=== PATIENT | female | born 2005 | race Caucasian/White ===

== ENCOUNTER 2023-03-19 05:14 | Outpatient (CLI) | payer MEDICAID, OTHER | END 2023-03-19 05:15 | disposition EMS.NT | LOC: EMS 05:14 | DX: S51.812A Laceration without foreign body of left forearm, initial encounter (principal); X78.1XXA Intentional self-harm by knife, initial encounter; Y92.009 Unspecified place in unspecified non-institutional (private) residence as the place of occurrence of the external cause; R45.89 Other symptoms and signs involving emotional state ==

== ENCOUNTER 2023-06-03 14:49 | Outpatient (CLI) | payer MEDICAID ==
[2023-06-03 15:06] LABS: BASOPHILS % (AUTO) 0.2 %; EOSINOPHILS # (AUTO) 0.1 10^3/uL (0.0-0.7); EOSINOPHILS % (AUTO) 1.1 %; HCT - HEMATOCRIT 30.9 % (37.0-47.0); HGB - HEMOGLOBIN 10.5 g/dL (12.0-16.0); LYMPHOCYTES # (AUTO) 1.1 10^3/uL (1.5-3.5); LYMPHOCYTES % (AUTO) 23.3 %; MEAN CORPUSCULAR HEMOGLOBIN 32.3 pg (27.0-31.0); MEAN CORPUSCULAR VOLUME 95.1 fL (81.0-99.0); MEAN PLATELET VOLUME 9.3 fL (7.9-10.8); MONOCYTES # (AUTO) 0.3 10^3/uL (0.0-1.0); MONOCYTES % (AUTO) 5.7 %; NEUTROPHILS # (AUTO) 3.3 10^3/uL (1.5-6.6); NEUTROPHILS % (AUTO) 69.5 %; PLT - PLATELET COUNT 193 10^3/uL (130-450); RED BLOOD COUNT 3.25 10^6/uL (4.20-5.40); RED CELL DISTRIBUTION WIDTH 13.5 % (12.0-15.0); WHITE BLOOD COUNT 4.7 x10^3/uL (4.8-10.8)
[2023-06-03 15:24] LABS: BILIRUBIN,URINE NEGATIVE (NEGATIVE); GLUCOSE, URINE (UA) NEGATIVE (NEGATIVE); KETONES,URINE (UA) NEGATIVE (NEGATIVE); LEUKOCYTE ESTERASE, URINE NEGATIVE (NEGATIVE); NITRITE,URINE NEGATIVE (NEGATIVE); OCCULT BLOOD,URINE NEGATIVE (NEGATIVE); PROTEIN,URINE NEGATIVE (NEGATIVE); UROBILINOGEN,URINE 0.2 (NORMAL) E.U./dL (NORMAL)
[2023-06-03 15:27] LABS: CLARITY,URINE CLEAR (CLEAR)
[2023-06-03 15:42] LABS: BACTERIA,URINE Moderate /HPF (None Seen); RBC,URINE None Seen /HPF (0-5); SQUAMOUS EPITHELIAL CELL,UR RARE Squamous (<= Few); WBC,URINE 0-3 /HPF (0-5)
[2023-06-03 20:47] LABS: BACTERIAL VAGINOSIS DNA NEGATIVE (NEGATIVE); CANDIDA GLABRATA DNA NEGATIVE (NEGATIVE); CANDIDA GROUP DNA POSITIVE (NEGATIVE); CANDIDA KRUSEI DNA NEGATIVE (NEGATIVE); TRICHOMONAS VAGINALIS DNA NEGATIVE (NEGATIVE)
[2023-06-03 23:24] LABS: CHLAMYDIA TRACHOMATIS DNA NEGATIVE (NEGATIVE); NEISSERIA GONORRHOEAE DNA NEGATIVE (NEGATIVE); TRICHOMONAS VAGINALIS DNA NEGATIVE (NEGATIVE)
[2023-06-04 05:11] LABS: HBsAG SCREEN Negative (Negative)
[2023-06-04 07:09] LABS: HIV SCREEN 4TH GENERATION Non Reactive (Non Reactive); RPR Non Reactive (Non Reactive)
[2023-06-04 08:10] LABS: VARICELLA-ZOSTER AB IGG 485 index (Immune >165)
[2023-06-05 09:08] LABS: HCV AB Non Reactive (Non Reactive)
== END 2023-06-03 14:50 | disposition home or self-care (01) ==
LOC: LAB 14:49
PROVIDERS: ATTEND Obstetrics & Gynecology
DX: O99.891 Other specified diseases and conditions complicating pregnancy (principal); N89.8 Other specified noninflammatory disorders of vagina; Z36.89 Encounter for other specified antenatal screening
CPT/HCPCS: 36415; 81001; 81514; 85025; 86592; 86762; 86787; 86803; 86850; 86900; 86901; 87077; 87086; 87181; 87340; 87389; 87491; 87591; 87661

== ENCOUNTER 2023-06-11 08:00 | Outpatient (CLI) | payer MEDICAID | END 2023-06-11 23:59 | disposition home or self-care (01) | LOC: LAB.N 08:00 | PROVIDERS: ATTEND Physician Assistant Medical | DX: N39.0 Urinary tract infection, site not specified (principal) | CPT/HCPCS: 87077; 87086; 87181 ==

== ENCOUNTER 2023-07-23 | Outpatient (CLI) | payer MEDICAID | END 2023-07-23 23:59 | disposition EMS.NT | LOC: EMS | DX: S51.812A Laceration without foreign body of left forearm, initial encounter (principal); S51.811A Laceration without foreign body of right forearm, initial encounter; X78.9XXA Intentional self-harm by unspecified sharp object, initial encounter ==

== ENCOUNTER 2023-07-25 07:50 | Outpatient (CLI) | payer MEDICAID ==
--- NOTE | 2023-07-26 00:12 | Ultrasound Report ---
PROCEDURE: OB 14+ Weeks INDICATIONS: SUPERVISION OF OUTSIDE/PRIOR DATING DATA: Last menstrual period (LMP): Unknown. LMP-based estimated date of delivery (TAMIKA): 03/12/2023. First dating scan (date and location): 07/25/2023. Estimated date of delivery (TAMIKA) from first dating scan: 12/24/2023. The below data below was generated using the working TAMIKA of communicated to 24 TECHNIQUE: Ultrasound of the gravid uterus was performed and recorded. COMPARISON: None. FINDINGS: General: A single live intrauterine gestation is present. Presentation: Vertex Placenta: Placental position is posterior without previa. Amniotic fluid index: 13.2 cm, normal for gestational age. heart rate: 147 beats per minute. Maternal cervical canal: 3.8 cm long; normal length is 2.5 cm or more. biometrics: Biparietal diameter: 4.2 cm, 18 week 5 day, 24 percentile Head circumference: 14.9 cm, 18 week 0 day, 3 percentile Abdominal circumference: 12.8 cm, 18 week 2 day, 17 percentile Femur length: 2.7 cm, 18 week 2 day, 11 percentile Estimated gestational age by working dates: not applicable. Composite gestational age by current ultrasound: 18 week 2 day Estimated weight and percentile: 232 g, 6.3 percentile Measurement variability in biometric dating: +/- 10 days from 12-20 weeks gestation, +/- 2 weeks from 20-30 weeks gestation, +/- 3 weeks at 30 weeks gestation or more. Anatomic survey: Neuro: Ventricles are non-dilated at less than 10 mm. Cisterna magna is normal at 3-11 mm. Cerebel lum is normal in size and morphology. Nuchal skin fold: Normal at less than 6 mm between 14-20 weeks gestational age. Face: Not evaluated Spine: No evidence for spina bifida. Heart: Outflow tracts not evaluated. Chamber view within normal limits Diaphragm: Diaphragm is intact. Stomach: Left-sided stomach is present. Kidneys: No hydronephrosis. Normal is less than 5 mm in 2nd trimester, less than 7 mm in 3rd trimester. Cord: 3-vessel cord has orthotopic insertion. Bladder: Normal in size. Extremities: Not evaluated Other: Not applicable. IMPRESSION: Single live intrauterine consistent with 18 week 2 day gestation by current ultrasound Cardiac outflow tracts, nose/lips, extremities not evaluated. Attention on follow-up Reviewed by: Roverto Hatch MD on 07/25/2023 11:11 PM AKDT Approved by: Roverto Hatch MD on 07/25/2023 11:11 PM AKTARAN Station ID: [id number]
== END 2023-07-25 07:51 | disposition home or self-care (01) ==
LOC: DI 07:50
PROVIDERS: ATTEND Nurse Practitioner
DX: Z34.02 Encounter for supervision of normal first pregnancy, second trimester (principal)

== ENCOUNTER 2023-08-15 08:00 | Outpatient (CLI) | payer MEDICAID ==
[2023-08-15 17:39] LABS: BILIRUBIN,URINE NEGATIVE (NEGATIVE); GLUCOSE, URINE (UA) 100 mg/dL (NEGATIVE); KETONES,URINE (UA) NEGATIVE (NEGATIVE); LEUKOCYTE ESTERASE, URINE NEGATIVE (NEGATIVE); NITRITE,URINE NEGATIVE (NEGATIVE); OCCULT BLOOD,URINE NEGATIVE (NEGATIVE); PROTEIN,URINE NEGATIVE (NEGATIVE); UROBILINOGEN,URINE 0.2 (NORMAL) E.U./dL (NORMAL)
[2023-08-15 17:42] LABS: CLARITY,URINE CLEAR (CLEAR)
[2023-08-15 17:46] LABS: SQUAMOUS EPITHELIAL CELL,UR MOD Squamous (<= Few)
[2023-08-15 17:47] LABS: AMORPHOUS SEDIMENT,UR Moderate /LPF; BACTERIA,URINE Moderate /HPF (None Seen)
== END 2023-08-15 23:59 | disposition home or self-care (01) ==
LOC: LAB.WC 08:00
PROVIDERS: ATTEND Nurse Practitioner
DX: R30.0 Dysuria (principal)
CPT/HCPCS: 81001; 87086

== ENCOUNTER 2023-08-27 08:00 | Outpatient (CLI) | payer MEDICAID ==
[2023-08-27 22:01] LABS: CHLAMYDIA TRACHOMATIS DNA NEGATIVE (NEGATIVE); NEISSERIA GONORRHOEAE DNA NEGATIVE (NEGATIVE)
[2023-08-27 23:04] LABS: BACTERIAL VAGINOSIS DNA NEGATIVE (NEGATIVE); CANDIDA GLABRATA DNA NEGATIVE (NEGATIVE); CANDIDA GROUP DNA NEGATIVE (NEGATIVE); CANDIDA KRUSEI DNA NEGATIVE (NEGATIVE); TRICHOMONAS VAGINALIS DNA NEGATIVE (NEGATIVE)
== END 2023-08-27 23:59 | disposition home or self-care (01) ==
LOC: LAB.N 08:00
PROVIDERS: ATTEND Physician Assistant Medical
DX: N39.0 Urinary tract infection, site not specified (principal); N89.8 Other specified noninflammatory disorders of vagina
CPT/HCPCS: 81514; 87086; 87491; 87591; 87661

== ENCOUNTER 2023-08-31 16:07 | Outpatient (CLI) | payer MEDICAID ==
--- NOTE | 2023-09-01 09:30 | Ultrasound Report ---
PROCEDURE: OB Follow up INDICATIONS: SUPERVISION OF OUTSIDE/PRIOR DATING DATA: Last menstrual period (LMP): 03/12/2023. LMP-based estimated date of delivery (TAMIKA): 12/17/2023. First dating scan (date and location): 07/25/2023. Estimated date of delivery (TAMIKA) from first dating scan: 12/24/2023. The below data below was generated using the ultrasound TAMIKA of 12/24/2023 TECHNIQUE: Real-time scanning was performed of the fetus, with image documentation and biometric measurements. Endovaginal scanning: Not performed. COMPARISON: 07/25/2023 FINDINGS: General: A single living intrauterine gestation is present. Presentation: Vertex Placenta: Placental position is posterior, without previa. Amniotic fluid index: 12.5 cm, within normal limits for gestational age. heart rate: 152 beats per minute. Maternal cervical canal: 3.7 cm long; normal length is 2.5 cm or more. biometrics: Biparietal diameter: 5.8 cm, 23 weeks 4 days, 47% Head circumference: 21.8 cm, 23 weeks 6 days, 42% Abdominal circumference: 18.3 cm, 23 weeks 1 day, 27% Femur length: 4.3 cm, 24 weeks 1 day, 56% Estimated gestational age from initial scan: 23 weeks 4 days Composite gestational age from present scan: 23 weeks 5 days Estimated weight and percentile: 608 g, 42% Measurement variability in biometric dating: +/- 10 days from 12-20 weeks gestation, +/- 2 weeks from 20-30 weeks gestation, +/- 3 weeks at 30 weeks gestation or more. Other: Nose, lips and facial profile are within normal limits. Cardiac outflow tracts are within norm al limits. Upper lower extremities are within normal limits.. IMPRESSION: 1.Single live intrauterine consistent with 23 weeks and 5 days. 2.Facial profile, nose, lips, cardiac outflow tracts and upper and lower extremities are within anna l limits. Reviewed by: Florentino Poole MD on 09/01/2023 9:29 AM PDT Approved by: Florentino Poole MD on 09/01/2023 9:29 AM PDT Station ID: [id number]
== END 2023-08-31 16:08 | disposition home or self-care (01) ==
LOC: DI 16:07
PROVIDERS: ATTEND Nurse Practitioner
DX: Z34.02 Encounter for supervision of normal first pregnancy, second trimester (principal)

== ENCOUNTER 2023-11-09 10:26 | Outpatient (CLI) | payer MEDICAID ==
[2023-11-09 10:42] LABS: HCT - HEMATOCRIT 30.5 % (37.0-47.0); HGB - HEMOGLOBIN 10.2 g/dL (12.0-16.0); MEAN CORPUSCULAR HEMOGLOBIN 32.3 pg (27.0-31.0); MEAN CORPUSCULAR HGB CONC 33.4 g/dL (32.0-36.0); MEAN CORPUSCULAR VOLUME 96.5 fL (81.0-99.0); MEAN PLATELET VOLUME 9.2 fL (7.9-10.8); RED BLOOD COUNT 3.16 10^6/uL (4.20-5.40); RED CELL DISTRIBUTION WIDTH 12.6 % (12.0-15.0); WHITE BLOOD COUNT 7.6 x10^3/uL (4.8-10.8)
[2023-11-09 11:00] LABS: CALCIUM 8.6 mg/dL (8.5-10.3); CREATININE 0.6 mg/dL (0.6-1.3); POTASSIUM 3.7 mmol/L (3.5-4.5)
[2023-11-09 12:11] LABS: ESTIMATED AVERAGE GLUCOSE 85 mg/dL (70-100); HEMOGLOBIN A1c% 4.6 % (4.27-6.07)
[2023-11-10 07:10] LABS: RPR Non Reactive (Non Reactive)
== END 2023-11-09 10:27 | disposition home or self-care (01) ==
LOC: LAB 10:26
PROVIDERS: ATTEND Obstetrics & Gynecology
DX: O09.893 Supervision of other high risk pregnancies, third trimester (principal)
CPT/HCPCS: 36415; 80048; 83036; 85027; 86592

== ENCOUNTER 2023-11-16 14:57 | Outpatient (CLI) | payer MEDICAID ==
--- NOTE | 2023-11-16 16:53 | Ultrasound Report ---
PROCEDURE: OB Follow up INDICATIONS: UTERINE SIZE-DATE DISCREPANCY, THIRD TRIMESTER OUTSIDE/PRIOR DATING DATA: Last menstrual period (LMP): 03/12/2023. LMP-based estimated date of delivery (TAMIKA): 12/17/2023. First dating scan (date and location): 07/25/2023. Estimated date of delivery (TAMIKA) from first dating scan: 12/24/2023. The below data below was generated using the working TAMIKA of 12/17/2023 TECHNIQUE: Real-time scanning was performed of the fetus, with image documentation and biometric measurements. Endovaginal scanning: Not performed. COMPARISON: 08/31/2023. FINDINGS: General: A single living intrauterine gestation is present. Presentation: Vertex Placenta: Placental position is posterior, without previa. Amniotic fluid index: 13.2 cm, within normal limits for gestational age. heart rate: 133 beats per minute. Maternal cervical canal: 4.6 cm long; normal length is 2.5 cm or more. biometrics: Biparietal diameter: 8.66 cm, 35 weeks 0 days, 37.0% Head circumference: 31.06 cm, 34 weeks 5 days, 6.9 percentile Abdominal circumference: 29.77 cm, 33 weeks 5 days, 12.0% Femur length: 6.44 cm, 33 weeks 2 days, 3.6 percentile Estimated working gestational age: 35 weeks 4 days Composite gestational age from present scan: 34 weeks 1 day Estimated weight and percentile: 2282.6 g, 10.3% Measurement variability in biometric dating: +/- 10 days from 12-20 weeks gestation, +/- 2 weeks from 20-30 weeks gestation, +/- 3 weeks at 30 weeks gestation or more. Other: Not applicable. IMPRESSION: 1. Living third trimester intrauterine with no sonographic evidence of complications. 2. Using the working TAMIKA of 12/17/2023, estimated weight is 10.3 percentile Reviewed by: Oli Reyes MD on 11/16/2023 4:52 PM PDT Approved by: Oli Reyes MD on 11/16/2023 4:52 PM PDT Station ID: [id number]
== END 2023-11-16 14:58 | disposition home or self-care (01) ==
LOC: DI 14:57
PROVIDERS: ATTEND Obstetrics & Gynecology
DX: O26.843 Uterine size-date discrepancy, third trimester (principal)

== ENCOUNTER 2023-12-23 07:59 | Inpatient (IN) ==
[2023-12-23] MEDS ORDERED: OXYTOCIN 10 UNIT/ML VIAL IM PRN (09:12)
[2023-12-23] MEDS ORDERED: SODIUM CHLORIDE FLUSH 0.9% 10 ML SYRINGE IVP PRN (09:12)
[2023-12-23] MEDS ORDERED: hydrALAZINE INJ 20 MG/ML VIAL IVP PRN (09:12)
[2023-12-23] MEDS ORDERED: miSOPROStoL 200 MCG TABLET BC PRN (09:12)
[2023-12-23] MEDS ORDERED: METHYLERGONOVINE 0.2 MG/ML VIAL IM PRN (09:12)
[2023-12-23] MEDS ORDERED: miSOPROStoL 200 MCG TABLET PR PRN (09:12)
[2023-12-23] MEDS ORDERED: lidocaine 1% 20 ML MDV ID PRN (09:12)
[2023-12-23] MEDS ORDERED: TRANEXAMIC ACID IN NACL 1,000 MG/100 ML BAG IV PRN (09:12)
[2023-12-23] MEDS ORDERED: TERBUTALINE 1 MG/ML VIAL SUBQ PRN (09:12)
[2023-12-23] MEDS ORDERED: fentaNYL 100 MCG/2 ML VIAL IVP PRN (09:12)
[2023-12-23] MEDS ORDERED: NIFEdipine 10 MG CAPSULE PO PRN (09:12)
[2023-12-23] MEDS ORDERED: CARBOPROST TROMETHAMINE 250 MCG/ML VIAL IM PRN (09:12)
[2023-12-23] MEDS ORDERED: LABETALOL 20 MG/4 ML SYRINGE IVP PRN ×3 (09:12)
[2023-12-23 09:23] LABS: BASOPHILS % (AUTO) 0.1 %; EOSINOPHILS # (AUTO) 0.2 10^3/uL (0.0-0.7); EOSINOPHILS % (AUTO) 1.7 %; HCT - HEMATOCRIT 31.5 % (37.0-47.0); HGB - HEMOGLOBIN 10.4 g/dL (12.0-16.0); LYMPHOCYTES % (AUTO) 9.9 %; MEAN CORPUSCULAR HEMOGLOBIN 30.8 pg (27.0-31.0); MEAN CORPUSCULAR VOLUME 93.2 fL (81.0-99.0); MEAN PLATELET VOLUME 10.5 fL (7.9-10.8); MONOCYTES # (AUTO) 0.3 10^3/uL (0.0-1.0); MONOCYTES % (AUTO) 3.1 %; NEUTROPHILS # (AUTO) 8.6 10^3/uL (1.5-6.6); PLT - PLATELET COUNT 246 10^3/uL (130-450); RED BLOOD COUNT 3.38 10^6/uL (4.20-5.40); RED CELL DISTRIBUTION WIDTH 13.3 % (12.0-15.0); WHITE BLOOD COUNT 10.1 x10^3/uL (4.8-10.8)
[2023-12-23 09:33] LABS: ALBUMIN 3.9 g/dL (3.2-5.5); ALBUMIN/GLOBULIN RATIO 1.1 (1.0-2.2); BILIRUBIN,TOTAL 0.4 mg/dL (0.2-1.0); CALCIUM 9.4 mg/dL (8.5-10.3); CREATININE 0.5 mg/dL (0.6-1.3); POTASSIUM 3.9 mmol/L (3.5-4.5); TOTAL PROTEIN 7.6 g/dL (6.4-8.9)
[2023-12-23] MEDS ORDERED: SODIUM CHLORIDE FLUSH 0.9% 10 ML SYRINGE IVP SCH (10:00)
[2023-12-23] MEDS: PROMETHAZINE 25 MG/1 ML VIAL IM ONE (10:36)
[2023-12-23] MEDS: MORPHINE 10 MG/ML VIAL IM ONE (10:37)
[2023-12-23] MEDS ORDERED: ROPIVACAINE 0.2% 200 MG/100 ML BAG EP ONE (12:16)
[2023-12-23] MEDS ORDERED: LIDOCAINE 2%-EPI 1:100000 20 ML MDV ONE (12:16)
[2023-12-23] MEDS: LACTATED RINGERS 1,000 ML IV PRN (12:17)
[2023-12-23] MEDS ORDERED: ePHEDrine 50 MG/ML VIAL IVP PRN (13:37)
[2023-12-23] MEDS ORDERED: METOCLOPRAMIDE 10 MG/2 ML VIAL IVP PRN (13:37)
[2023-12-23] MEDS ORDERED: LACTATED RINGERS 500 ML IV ONE (13:37)
[2023-12-23] MEDS ORDERED: NALBUPHINE 10 MG/ML AMP IVP PRN (13:37)
[2023-12-23] MEDS ORDERED: NALOXONE 0.4 MG/ML VIAL IVP PRN (13:37)
[2023-12-23] MEDS ORDERED: diphenhydrAMINE INJ 50 MG/ML VIAL IVP PRN (13:37)
--- NOTE | 2023-12-23 13:39 | ANESTHESIA PROCEDURE NOTE ---
Pre-Anesthesia VS, & Labs Diagnosis Surgical Diagnosis:: labor Procedure Procedure: epidural Vitals Vital Signs: Temp Pulse Resp BP 36.8 C 92 H 18 127/71 12/23/23 08:17 12/23/23 08:17 12/23/23 08:17 12/23/23 08:17 NPO NPO: Other Is Patient ?: Yes Lab Results Current Lab Results: Laboratory Tests 12/23/23 10:15: Blood Type B POSITIVE, Antibody Screen NEGATIVE 12/23/23 08:55: WBC 10.1, RBC 3.38 L, Hgb 10.4 L, Hct 31.5 L, MCV 93.2, MCH 30.8, MCHC 33.0, RDW 13.3, Plt Count 246, MPV 10.5, Neut # (Auto) 8.6 H, Lymph # (Auto) 1.0 L, Yancey # (Auto) 0.3, Eos # (Auto) 0.2, Baso # (Auto) 0.0, Absolute Nucleated RBC 0.00, Nucleated RBC % 0.0, Sodium 135, Potassium 3.9, Chloride 104, Carbon Dioxide 21, Anion Gap 10.0, BUN 7, Creatinine 0.5 L, Estimated GFR (MDRD) 157, Glucose 81, Calcium 9.4, Total Bilirubin 0.4, AST 18, ALT 7 L, A lkaline Phosphatase 282 H, Total Protein 7.6, Albumin 3.9, Globulin 3.7, Albumin/Globulin Ratio 1.1 12/23/23 08:55 12/23/23 08:55 Meds/Allgy Home Medications Ambulatory Orders Medication Instructions Recorded Confirmed biotin 1 mg capsule 1 mg PO QDAY 12/19/23 12/19/23 ferrous sulfate 325 mg (65 mg 325 mg PO QDAY 12/19/23 12/19/23 iron) tablet magnesium 200 mg tablet 200 mg PO QDAY 12/19/23 12/19/23 vits no.126-ferrous fum tab PO 12/19/23 12/19/23 28 mg iron-folic acid 800 mcg tablet (Classic ) Allergies Allergies Allergy/AdvReac Type Severity Reaction Status Date / Time No Known Drug Allergies Allergy Verified 09/22/22 06:54 [facility] Social History Social History (Updated 12/19/23 @ 12:23 by Farzana Peralta MA) Smoking Status: Former smoker Second hand tobacco smoke exposure: No Do you dip or chew tobacco?: No Do you vape?: Yes ETOH Use: None Substance Use: denies use Anesthesia Exam (Expanded) Exam General: Alert, Oriented x3 and Moderate distress Dental: WNL Mouth Opening: Greater than 4 Fingerbreadths Neck Mobility: Normal Mallampati classification: I Thyromental Distance: greater than 6 cm Respiratory: Lungs clear Cardiovascular: Regular rate Exam Exam Vital Signs Temperature 36.8 C 12/23/23 08:17 Pulse Rate 92 H 12/23/23 08:17 Respiratory Rate 18 12/23/23 08:17 Blood Pressure 127/71 12/23/23 08:17 Plan Plan Anesthesia Type: Epidural Consent for Procedure(s) Verified and Reviewed: Yes Code Status: Attempt Resuscitation ASA Classification ASA classification: 2-Mild systemic disease Is this case an emergency?: No
[2023-12-23] MEDS: ONDANSETRON 4 MG/2 ML VIAL IVP PRN (13:46)
[2023-12-23] MEDS: ROPIVACAINE 0.2% 200 MG/100 ML BAG EP PRN (16:43)
--- NOTE | 2023-12-23 17:00 | PHARMACY PROGRESS NOTE ---
Best Possible Medication History Admit Date and Time: 12/23/23 [id number] [facility] Statement: As the person ultimately responsible for medication therapy, providers are able to order a medication from an existing home medication list in [facility] via the "Reconcile Routine" prior to Confirmation of that medication by manager decision support. Such practice is discouraged except when the physician, in their clinical judgment, deems that a medical need exists for a medication without regard to previous use.
[2023-12-23] MEDS: OXYTOCIN/SODIUM CHLORIDE 500 ML IV PRN (17:57)
[2023-12-23] MEDS ORDERED: OXYTOCIN/SODIUM CHLORIDE 500 ML IV PRN (18:32)
[2023-12-23] MEDS ORDERED: IRON DEXTRAN 1,000 MG in SODIUM CHLORIDE 0.9% 250 ML IV ONE (18:37)
--- NOTE | 2023-12-23 18:53 | HISTORY & PHYSICAL EXAMINATION ---
Admit History Visit Reason Visit Reason: Contractions : 2 : 1 Care: positive [facility] Complications This : positive Other (came to visits but never did dating ultrasound or sugar test.) Smoking Status: Former smoker Mother's Labs Mother's Blood Type: positive B Mother's RH: positive Positive GBS: positive Group B Step Negative Rubella Status: positive Non-immune and Immune HPI Diagnosis/Indication for NST: Post-dates gestation Current : Vital Signs Temperature 36.8 C 12/23/23 08:17 Pulse Rate 92 H 12/23/23 08:17 Respiratory Rate 18 12/23/23 08:17 Blood Pressure 127/71 12/23/23 08:17 Temperature 36.8 C 12/23/23 08:17 Pulse Rate 92 H 12/23/23 08:17 Respiratory Rate 18 12/23/23 08:17 Blood Pressure 127/71 12/23/23 08:17 NST Procedure NST Procedure: baby looks great. Acels and no decels. moderate variability Results and Plan Findings/Impression: reactive NST Plan: admit for labor. Meds/Allgy Home Medications Ambulatory Orders Medication Instructions Recorded Confirmed biotin 1 mg capsule 1 mg PO QDAY 12/19/23 12/23/23 ferrous sulfate 325 mg (65 mg 325 mg PO QDAY 12/19/23 12/23/23 iron) tablet magnesium 200 mg tablet 200 mg PO QDAY 12/19/23 12/23/23 vits no.126-ferrous fum 1 tab PO DAILY 12/19/23 12/23/23 28 mg iron-folic acid 800 mcg tablet (Classic ) Allergies Allergies Allergy/AdvReac Type Severity Reaction Status Date / Time No Known Drug Allergies Allergy Verified 09/22/22 06:54 [facility] Medical History Medical History (Updated 12/23/23 @ 18:51 by Rosanne Chong MD) Anxiety Family History Family History (Updated 12/23/23 @ 18:47 by Rosanne Chong MD) Mother Mental disorder CAD (coronary artery disease) Father Hepatitis C virus Diabetes Social History Social History (Updated 12/19/23 @ 12:23 by Farzana Peralta MA) Smoking Status: Former smoker Second hand tobacco smoke exposure: No Do you dip or chew tobacco?: No Do you vape?: Yes ETOH Use: None Substance Use: denies use POLST Patient has POLST: No Review of Systems no headache, n/v. painful contractions from 4 am. did not sleep last night. no leaking of fluid on admit. good movement. Physical Abdominal Exam Vital Signs: Temp Pulse Resp BP 36.8 C 92 H 18 127/71 12/23/23 08:17 12/23/23 08:17 12/23/23 08:17 12/23/23 08:17 Contraction Frequency (min/apart): every 2-3 min Contraction Intensity: positive Mild to moderate Uterine Resting Tone: positive Soft Monitoring Strip Review: positive Category I Presentation Presentation: positive Vertex (confrimed by ultrasound. ) Vaginal Exam Membranes: positive Membranes intact Dilation (in cm): unable to reach cervix, too far behind baby's head Station: positive 1 Cervical Position: positive Posterior Speculum Exam Speculum Exam Performed: positive No Plan for Labor Plan For Labor I expect patient to be DC'd or transferred within 96 hours.: Yes Conclusion/Plan Problem List (1) Anemia affecting : Plan: check ferritin. maybe post iron (2) 40 weeks gestation of : Plan: was coming in today for induction but is in early labor. ally too much for miso and I can not reach cervix to put in a balloon. will give her morphine and phenergan so she can get some sleep. She agrees to this plan. is very painful and very tired. Lab Results Lab results reviewed: Yes 12/23/23 08:55 12/23/23 08:55
--- NOTE | 2023-12-23 18:55 | PROVIDER PROGRESS NOTE ---
Labor Progress Note Uterine Monitoring Uterine Monitoring Mode: positive External toco Contraction Frequency (min/apart): 2-3 Contraction Intensity: positive Moderate Monitoring Monitor Mode: positive External ultrasound Accelerations: positive Present, 15x15 Decelerations: positive None Labor Progress Note Labor Progress Note/Additional Text: SROM per RN about 11:45. 2 rn check and thought she was 8. patient is getting epidural. later found to be only 3. then I came in to see her with some variables and she was complete and plus 3.
--- NOTE | 2023-12-23 19:10 | DELIVERY NOTE ---
Delivery Note Labor Labor: positive Spontaneous (presented for induction but was in early labor. SROM. Got her epidural around noon. At 5 pm was complete and + 3. ) Delivery Method Delivery Method: positive Spontaneous vaginal delivery Presentation Presentation: positive Vertex and OA - occiput anterior Nuchal Cord Nuchal Cord: positive None Amniotic Fluid Description Amniotic Fluid Description: positive Clear Episiotomy Type Episiotomy Type: positive None Laceration Laceration: positive Labial (bilateral labial tears. right in to top of labia minora. left barely torn. left repaired with one mattress stitch. right deep, repaired in 2 layers. ) Suture Suture Type: positive Vicryl Suture Size: positive 4-0 Delivery Outcome Delivery Outcome: positive Livebirth Madison Madison: positive Placed in direct skin contact with mother and Lincoln used Madison sex: positive Female Cord Cord: positive 3 vessels Placenta Placenta: positive Intact and Spontaneous Estimated Blood Loss Estimated Blood Loss (in cc): 300 Post Delivery Events Post Delivery Events: positive No post delivery events Delivery Comments (Free Text/Narrative) Delivery Comments (Free Text/Narrative): Patient found to be complete and + 3. readied for delivery. epidural with great pain relief. progressed without any augmentation. gbs neg. set up for delivery and pushed for 15 minutes. lube and warm compresses used. with delivery, KAREN Sin assisted with delivery. baby put on mom's abdomen. cord cut and clamped after about 2 minutes. Placenta spontaneous. uterus contracted well. OT in iv. labial lacerations repaired as above. baby did well from time of . no concerns.
[2023-12-23] MEDS ORDERED: CALCIUM CARBONATE CHEW 500 MG TABLET PO SCH (21:00)
[2023-12-23] MEDS: IBUPROFEN 600 MG TABLET PO PRN (21:20)
[2023-12-23] MEDS: ACETAMINOPHEN 500 MG TABLET PO PRN (21:20)
[2023-12-23] MEDS: DOCUSATE SODIUM 100 MG CAPSULE PO SCH (21:21)
[2023-12-24 11:17] LABS: HCT - HEMATOCRIT 27.6 % (37.0-47.0); HGB - HEMOGLOBIN 8.9 g/dL (12.0-16.0); MEAN CORPUSCULAR HEMOGLOBIN 30.5 pg (27.0-31.0); MEAN CORPUSCULAR HGB CONC 32.2 g/dL (32.0-36.0); MEAN CORPUSCULAR VOLUME 94.5 fL (81.0-99.0); MEAN PLATELET VOLUME 10.1 fL (7.9-10.8); RED BLOOD COUNT 2.92 10^6/uL (4.20-5.40); RED CELL DISTRIBUTION WIDTH 13.5 % (12.0-15.0); WHITE BLOOD COUNT 8.7 x10^3/uL (4.8-10.8)
[2023-12-24] MEDS: FERROUS SULFATE 325 MG TABLET PO SCH (17:08)
--- NOTE | 2023-12-24 18:03 | Discharge Summary ---
"Discharge Summary Admit Date: 12/23/23 Discharge Date: 12/24/23 Discharging Provider: Rosanne Chong MD Code Status: Attempt Resuscitation DIAGNOSES Admission Diagnoses: Term in early labor. anemia. Discharge Diagnoses with Status of Each Condition: term with vaginal delivery. anemia. stable treated with iv iron. HPI History of Present Illness: at 40 weeks 6 days presents with early labor. painful contractions. was to come in for induction today anyway. complicated by anemia, possible small baby. CONSULTS | PROCEDURES Procedures: vaginal delivery with epidural anesthesia. HOSPITAL COURSE Hospital Course: Patient was admitted in early labor. Shortly after she was admitted SROM occurred. Then she had epidural. Progressed well in labor. Pushed for about 15 minutes to have a uriel vaginal delivery. Merrick helped delivery their baby. Delivery was 12/22 at 17:54. She had bilateral labial lacerations with some stitches. She was anemic before and lost about 300 cc of blood. 1 gram of iron Dextran was given after delivery. She is discharged home on ppd #1 doing great. Baby is breast feeding. baby is a girl named Chelsie weighing 3272 grams. ALLERGIES Allergies Allergy/AdvReac Type Severity Reaction Status Date / Time No Known Drug Allergies Allergy Verified 09/22/22 06:54 MEDICATIONS Ambulatory Orders Medication Instructions Recorded Confirmed biotin 1 mg capsule 1 mg PO QDAY 12/19/23 12/23/23 ferrous sulfate 325 mg (65 mg 325 mg PO QDAY 12/19/23 12/23/23 iron) tablet magnesium 200 mg tablet 200 mg PO QDAY 12/19/23 12/23/23 vits no.126-ferrous fum 1 tab PO DAILY 12/19/23 12/23/23 28 mg iron-folic acid 800 mcg tablet (Classic ) acetaminophen 500 mg tablet 650 mg (1.3 x 500 mg) PO Q6HR PRN 12/24/23 Pain Or Fever > 38c (100.4f) #30 tabs docusate sodium 100 mg capsule 100 - 200 mg (1 - 2 x 100 mg) PO 12/24/23 BID PRN Constipation #60 caps docusate sodium 100 mg capsule 100 - 200 mg (1 - 2 x 100 mg) PO 12/24/23 BID PRN Constipation #60 caps docusate sodium 100 mg capsule 100 mg PO BID #30 caps 12/24/23 ibuprofen 600 mg tablet 600 mg PO Q6H PRN Pain #30 tabs 12/24/23 ibuprofen 600 mg tablet 600 mg PO Q6H PRN Pain #30 tabs 12/24/23 ibuprofen 600 mg tablet 600 mg PO Q6HR PRN Moderate Pain 12/24/23 (Level 4-6) #30 tabs PHYSICAL EXAM AT DISCHARGE General Appearance: positive No acute distress Respiratory: positive No respiratory distress Cardiovascular: positive Regular rate & rhythm Abdomen: positive Non-tender Extremities: positive Non-tender and No pedal edema LABS 12/24/23 11:12 12/23/23 08:55 FOLLOW UP Follow Up: in clinic in 1-2 weeks. TIME SPENT Time Spent in Discharge (Minutes): 30 Discharge Plan Discharge Patient Disposition: 01 Home, Self Care Condition: Good Prescriptions: New docusate sodium 100 mg capsule 100 - 200 mg PO BID PRN (Reason: Constipation) Qty: 60 1RF ibuprofen 600 mg tablet 600 mg PO Q6H PRN (Reason: Pain) Qty: 30 0RF acetaminophen 500 mg Tablet 650 mg PO Q6HR PRN (Reason: Pain Or Fever > 38c (100.4f)) Qty: 30 0RF docusate sodium 100 mg Capsule 100 mg PO BID Qty: 30 0RF ibuprofen 600 mg Tablet 600 mg PO Q6HR PRN (Reason: Moderate Pain (Level 4-6)) Qty: 30 0RF ibuprofen 600 mg tablet 600 mg PO Q6H PRN (Reason: Pain) Qty: 30 0RF docusate sodium 100 mg capsule 100 - 200 mg PO BID PRN (Reason: Constipation) Qty: 60 1RF Continued ferrous sulfate 325 mg (65 mg iron) tablet 325 mg PO QDAY biotin 1 mg capsule 1 mg PO QDAY magnesium 200 mg tablet 200 mg PO QDAY Classic 28 mg iron- 800 mcg tablet 1 tab PO DAILY Activity Restrictions: pelvic rest x 6 weeks Diet: Regular Print Language: Malay Patient Instructions: Vaginal, , Self Care Follow-up Care: Rosanne Chong MD [Provider Admit Priv/Credential] -"
[2023-12-24 21:18] LABS: INFLUENZA A- RESP PCR PANEL NOT DETECTED; INFLUENZA B - RESP PCR PANEL NOT DETECTED; RSV- RESP PCR PANEL NOT DETECTED; SARS-CoV-2 -RESP PCR PANEL NOT DETECTED
[2023-12-24] MEDS ORDERED: diphenhydrAMINE 25 MG CAPSULE PO PRN (21:46)
--- NOTE | 2023-12-24 21:49 | PROVIDER PROGRESS NOTE ---
Progress Note Progress Note Progress Note: Patient has decided that she wants to stay the night. mild uri sx. respiratory virus swab negative. will order benadryl, cepacol, robitussin. and reassess tomorrow am.
[2023-12-24] MEDS: guaiFENesin 100 MG/5 ML UDC PO PRN (22:08)
[2023-12-24] MEDS: BENZOCAINE/MENTHOL LOZENGE MM PRN (22:09)
[2023-12-25 08:21] VITALS: O2SAT 99
--- NOTE | 2023-12-25 10:57 | Discharge Summary ---
"Discharge Summary Admit Date: 12/23/23 Discharge Date: 12/25/23 Discharging Provider: Rosanne Chong MD Code Status: Attempt Resuscitation DIAGNOSES Admission Diagnoses: term in labor HPI History of Present Illness: presents in labor. complicated by ? small baby, anemia, never did a sugar test. CONSULTS | PROCEDURES Procedures: vaginal delivery with epidural anesthesia. repair of labial lacerations. HOSPITAL COURSE Hospital Course: admitted in early labor. baby's head was very low. SROM and got epidural. progressed to complete. uncomplicated vaginal delivery assisted by the dad. post course unremarkable. stayed until day 2 as she was not feeling great last evening. feeling well today. ALLERGIES Allergies Allergy/AdvReac Type Severity Reaction Status Date / Time No Known Drug Allergies Allergy Verified 09/22/22 06:54 MEDICATIONS Ambulatory Orders Medication Instructions Recorded Confirmed biotin 1 mg capsule 1 mg PO QDAY 12/19/23 12/23/23 ferrous sulfate 325 mg (65 mg 325 mg PO QDAY 12/19/23 12/23/23 iron) tablet magnesium 200 mg tablet 200 mg PO QDAY 12/19/23 12/23/23 vits no.126-ferrous fum 1 tab PO DAILY 12/19/23 12/23/23 28 mg iron-folic acid 800 mcg tablet (Classic ) acetaminophen 500 mg tablet 650 mg (1.3 x 500 mg) PO Q6HR PRN 12/24/23 Pain Or Fever > 38c (100.4f) #30 tabs docusate sodium 100 mg capsule 100 - 200 mg (1 - 2 x 100 mg) PO 12/24/23 BID PRN Constipation #60 caps docusate sodium 100 mg capsule 100 - 200 mg (1 - 2 x 100 mg) PO 12/24/23 BID PRN Constipation #60 caps docusate sodium 100 mg capsule 100 mg PO BID #30 caps 12/24/23 ibuprofen 600 mg tablet 600 mg PO Q6H PRN Pain #30 tabs 12/24/23 ibuprofen 600 mg tablet 600 mg PO Q6H PRN Pain #30 tabs 12/24/23 ibuprofen 600 mg tablet 600 mg PO Q6HR PRN Moderate Pain 12/24/23 (Level 4-6) #30 tabs PHYSICAL EXAM AT DISCHARGE General Appearance: positive No acute distress LABS 12/24/23 11:12 10/18/24 08:55 FOLLOW UP Follow Up: with ob clinic in 1-2 weeks TIME SPENT Time Spent in Discharge (Minutes): 10 Discharge Plan Discharge Patient Disposition: 01 Home, Self Care Condition: Good Prescriptions: New docusate sodium 100 mg capsule 100 - 200 mg PO BID PRN (Reason: Constipation) Qty: 60 1RF ibuprofen 600 mg tablet 600 mg PO Q6H PRN (Reason: Pain) Qty: 30 0RF acetaminophen 500 mg Tablet 650 mg PO Q6HR PRN (Reason: Pain Or Fever > 38c (100.4f)) Qty: 30 0RF docusate sodium 100 mg Capsule 100 mg PO BID Qty: 30 0RF ibuprofen 600 mg Tablet 600 mg PO Q6HR PRN (Reason: Moderate Pain (Level 4-6)) Qty: 30 0RF ibuprofen 600 mg tablet 600 mg PO Q6H PRN (Reason: Pain) Qty: 30 0RF docusate sodium 100 mg capsule 100 - 200 mg PO BID PRN (Reason: Constipation) Qty: 60 1RF Continued ferrous sulfate 325 mg (65 mg iron) tablet 325 mg PO QDAY biotin 1 mg capsule 1 mg PO QDAY magnesium 200 mg tablet 200 mg PO QDAY Classic 28 mg iron- 800 mcg tablet 1 tab PO DAILY Activity Restrictions: pelvic rest x 6 weeks Diet: Regular Print Language: Persian Patient Instructions: Vaginal, , Self Care Follow-up Care: Rosanne Chong MD [Provider Admit Priv/Credential] -"
--- NOTE | 2023-12-25 12:04 | Labor Flowsheet ---
Labor Flowsheet Datetime Report Generated by CPN: 12/25/2023 12:04 Datetime: 12/25/2023 07:56 VITAL SIGNS NBP Sys/Cierra/Mean (mmHg): 129 : 84 : 93 Pulse: 85 Datetime: 12/23/2023 20:15 SpO2 (%): 97 Datetime: 12/23/2023 19:01 Pain Assessment Comments: Shift report given to Vamsi, RN. Care relinqished at this time Datetime: 12/23/2023 18:00 Stage of : Datetime: 12/23/2023 17:54 Frequency (min): 2-3 Duration (sec): 60+ Pattern: Normal: <= 5 Contractions in 10 Minutes Resting Tone (Palpate): Relaxed Contraction Comments: pushing with contraction Comments: FHR audbile at 135 bpm while pushing Patient Care Comments: NJSVD of viable female Datetime: 12/23/2023 17:30 ASSESSMENT A Monitor Mode: External US FHR Baseline Rate : 135 Variability: Moderate 6-25 bpm Accelerations: 15X15 Decelerations: None Category: Category I Datetime: 12/23/2023 17:10 VAGINAL EXAM Dilatation (cm): 10.0 Effacement (%): 100 Station: 1 Exam by: MD Castillo Cervix, Position: Posterior Datetime: 12/23/2023 16:44 Temperature (C): 37.1 Patient Position/Activity: Right Lateral Datetime: 12/23/2023 16:00 UTERINE ACTIVITY Monitor Mode: External Quality: Strong Datetime: 12/23/2023 15:30 Monitor Interventions for UA: [place] Adjusted Datetime: 12/23/2023 15:17 I/O Interventions: Mullen Cath Inserted Datetime: 12/23/2023 13:58 PAIN Pain Scale: 10 Pain Presence: Constant Pain Type: Contraction Pain Location: Abdomen Datetime: 12/23/2023 13:50 Vaginal Bleeding: Normal Show Cervix, Consistency: Soft Vaginal Exam Comments: SVE recheck by RN. head in a higher position and cervix felt to matern al right at 3 cm dilated. Datetime: 12/23/2023 12:57 Membranes Ruptured Date/Time: 12/23/2023 11:40 Membranes Rupture Method: Spontaneous Amniotic Fluid Color: Clear Amniotic Fluid Amount: Moderate Datetime: 12/23/2023 12:16 PATIENT CARE IV/Blood Work: IV Bolus Started Datetime: 12/23/2023 10:38 Pain Relief Measures: Pain Medication Given Datetime: 12/23/2023 09:45 Membrane Status: Intact Datetime: 12/23/2023 08:22 MATERNAL ASSESSMENT Nausea/Vomiting: Present
== END 2023-12-25 12:00 | disposition home or self-care (01) | DRG 807 ==
LOC: WFO 07:59 → FBP 07:59
PROVIDERS: ADMIT Obstetrics & Gynecology; ATTEND Obstetrics & Gynecology
DX: Z37.0 Single live birth; O70.0 First degree perineal laceration during delivery; Z87.891 Personal history of nicotine dependence; Z3A.40 40 weeks gestation of pregnancy; O99.02 Anemia complicating childbirth